=== PATIENT | male | born 1960 | race Caucasian/White ===

== ENCOUNTER 2020-03-22 11:59 | Day surgery (SDC) | payer OTHER ==
--- NOTE | 2020-03-22 07:17 | HP ---
History & Physical Update - Physical Physical: No Change - Assessment Assessment: No Change - Plan Plan: No Change
--- OUTSIDE RECORDS SUMMARY | 2020-03-22 12:12 | XMS ---
:1960 Author Organization [facility] Support Name Relationship Address Phone EFA Unavailable [address] [place] [address] [address] [place] [address] Re-disclosure Warning The records that you are about to access may contain information from federally- assisted alcohol or drug abuse programs. If such information is present, then the following federally mandated warning applies: This information has been disclosed to you from records protected by federal confidentiality rules (42 CFR part 2). The federal rules prohibit you from making any further disclosure of this information unless further disclosure is expressly permitted by the written consent of the person to whom it pertains or as otherwise permitted by 42 CFR part 2. A general authorization for the release of medical or other information is NOT sufficient for this purpose. The Federal rules restrict any use of the information to criminally investigate or prosecute any alcohol or drug abuse patient.The records that you are about to access may contain highly sensitive health information, the redisclosure of which is protected by Article 27-F of the [facility] Public Health law. If you continue you may haveaccess to information: Regarding HIV / AIDS; Provided by facilities licensed or operated by the [facility] Office of Mental Health; or Provided by the [facility] Office for People With Developmental Disabilities. If such information is present, then the following [facility] mandated warning applies: This information has been disclosed to you from confidential records which are protected by state law. State law prohibits you from making any further disclosure of this information without the specific written consent of the person to whom it pertains, or as otherwise permitted by law. Any unauthorized further disclosure in violation of state law may result in a fine or assisted sentence or both. A general authorization for the release of medical or other information is NOT sufficient authorization for further disclosure. Encounters Encounter Providers Location Date Indications Data Source(s ) Outpatient 04/19/2019 04:46:00 [facility] EN ([facility]) Insurance Providers Payer name Policy type Policy ID Covered Covered constitution party's Policy P bailey / Coverage constitution party ID relationship to [place] ormation type [place] [id number] 400 [employer] [place] [id number] [place] [id number] 400 HEALTH PLANS [facility] [id number] Health Plan [place] Problems, Conditions, and Diagnoses Code Display Name Description Problem Type Effective Data Sour ce(s) Dates T88.8xxA Other specified Complication med Diagnosis 04/19/2019 NEX TGEN complications of care NEC/NOS 04:46:00 PM ([facility]) classified, initial encounter Results ID Date Data Source [id number] 03/18/2020 10:01:00 AM EDT [facility] Name Value Range Interpretation Description Data Sup porting Code Source(s) Document(s ) SARS [facility] coronavirus 2 RNA This lab was ordered by [facility] and reported by [facility]. ID Date Data Source [id number] 02/20/2020 12:00:00 AM EDT [facility] Name Value Range Interpretation Description Data Sup porting Code Source(s) Document(s ) Nasopharyngeal [facility] Swab SARS-CoV-2 / COVID-19 This lab was ordered by [facility] and reported by [facility] [employer]. ID Date Data Source [id number] 11/24/2019 10:01:00 AM EDT [facility] Name Value Range Interpretation Description Data Sup porting Code Source(s) Document(s ) SARS [facility] CORONAVIRUS 2 RNA This lab was ordered by [employer] and reported by [facility]. ID Date Data Source [id number] 09/19/2019 12:00:00 AM EDT [facility] Name Value Range Interpretation Code Description Data Evelina rce(s) Supporting Document(s ) 2019-nCoV [facility] RNA XXX RICH+probe- Imp This lab was ordered by [id number] and reported by [employer] Procedure
[2020-03-22 12:36] VITALS: BMI 25.1
[2020-03-22] MEDS ORDERED: BUPIVACAINE HCL/PF 0.25% (2.5MG/ML) 10 ML VIAL ONE ×2 (14:28→15:59)
--- NOTE | 2020-03-22 15:06 | OPR ---
DATE OF OPERATION: 03/22/2020 TITLE OF OPERATION: Left partial medial meniscectomy, chondroplasty medial femoral condyle, patellofemoral joint, loose body removal, and synovectomy (limited). PREOPERATIVE DIAGNOSIS: Left Medial meniscus tear, chondromalacia medial compartment and patellofemoral joint, loose body, synovitis. POSTOPERATIVE DIAGNOSIS: Left Medial meniscus tear, chondromalacia medial compartment and patellofemoral joint, loose body, synovitis. SURGEON: Joe Ruvalcaba DO DELI WORKER: NAVID ANESTHESIA: General anesthesia SPECIMEN: Meniscus shavings COMPLICATIONS: none EBL: minimal INDICATIONS FOR SURGERY: Mr. Willis is a 60 year old male who presented in the preoperative setting with a chief complaint of left knee pain. Based on their mechanical symptoms, pre-injury level of activity, and after failure of conservative management, including physical therapy, activity modification and home exercise program, surgical treatment was discussed. The risks and benefits of surgery and anesthesia were discussed in detail including but not limited to pain, bleeding, blood clot, infection, scarring, damage to vessels and nerves, failure to obtain the desired result, failure to heal, failure to return to sport or work. Understanding the risks and benefits, Mr. Willis opted to proceed with surgical management. SURGEON'S NARRATIVE: After informed consent was obtained the patient was brought the operating room prepped draped in usual fashion sterile technique. Timeout was called. Site verification was performed and perioperative antibodies were administered. A standard anterolateral portal was made and the 4 mm 30 degree arthroscope was inserted into the knee joint without difficulty. This revealed significant patellofemoral grade II and III chondromalacia over approximately 30% of his joint, and demonstrated synovitic fronts over the inferior and medial portions of the patella. Turning my attention the medial compartment, the patient had a large complex tear of the body and posterior horn of the medial meniscus that reached the articular surface. There was mild associated chondromalacia grade II of the medial femoral condyle and tibial plateau constituting approximately 20% of the joint. I performed a partial medial meniscectomy removing the torn tissue with arthroscopic shaver and biter. I estimate that I removed approximately 40 percent of the meniscus. The remaining meniscus was intact after the resection from root to root. I was also able to remove a loose body that was in the medial compartment. The ACL was examined and was intact. Turning my attention the lateral compartment the patient, the lateral meniscus was probed, and there was no tear of the lateral meniscus. There was also no significant associated chondromalacia of the lateral compartment. The meniscus was intact from root to root. I then went into the patellofemoral compartment to complete a limited synovectomy, and of the patellofemoral joint. This completed the procedure. I closed incisions with 3-0 nylon. I injected 10cc's total .25% marcaine into the two portal sites. A sterile dressing and xeroform and an ADILSON bandage was placed. The patient tolerated procedure well and arrived recovery in stable condition. Patient will follow up with me in the office within 10-14 days for suture removal. He will start ASA 325 QD starting tomorrow for 30 days. He will be WBAT with crutches, and start Physical therapy within 7 days. Joe Ruvalcaba DO
[2020-03-22] MEDS ORDERED: MIDAZOLAM HCL 2 MG/2 ML SINGLE DOSE VIAL ONE (15:13)
[2020-03-22] MEDS ORDERED: ceFAZolin SODIUM 1 GM VIAL IVPB ONE (15:25)
[2020-03-22] MEDS ORDERED: BUPIVACAINE HCL/PF 0.5% (5 MG/ML) 30 ML VIAL IJ ONE (15:25)
[2020-03-22] MEDS ORDERED: ePHEDrine SULFATE 50 MG/1 ML AMPULE ONE (15:31)
[2020-03-22] MEDS ORDERED: oxyCODONE HCL 5 MG TABLET PO PRN ×2 (16:00→16:16)
[2020-03-22] MEDS ORDERED: LACTATED RINGERS SOLUTION 1,000 ML IV SCH (16:00)
[2020-03-22] MEDS ORDERED: ONDANSETRON 4 MG/2 ML VIAL IVPUSH PRN (16:00)
[2020-03-22] MEDS ORDERED: PROMETHAZINE HCL 25 MG/1 ML VIAL IVPUSH PRN (16:00)
[2020-03-22] MEDS ORDERED: ACETAMINOPHEN 325 MG TABLET (FP) PO PRN (16:16)
[2020-03-22] MEDS ORDERED: oxyCODONE HCL 5 MG TABLET ONE (17:17)
[2020-03-22 18:20] VITALS: TEMP 97.6
[2020-03-22 18:24] VITALS: BP 133/81; PULSE 82
--- NOTE | 2020-03-27 16:05 | PATH ---
Surgical Pathology Report Patient Name: KIRSTEN MOSLEY Med. Rec. #: [id number] /Age/Gender: 1960 (Age: 60) / M Account: [id number] Location: [facility] Taken: 03/22/2020 Received: 03/22/2020 Reported: 03/27/2020 Physicians: Joe Ruvalcaba MD Specimen(s) Received SHAVINGS LEFT KNEE Clinical History Left knee partial meniscectomy Final Diagnosis LEFT KNEE SHAVINGS: FRAGMENTS OF SYNOVIAL TISSUE WITH FOCAL MILD CHRONIC INFLAMMATION, FIBROSIS, AND REACTIVE CHANGE. Electronically Signed Susy Maldonado M.D. Gross Description Received in formalin, labeled "left knee shavings," is a 4.0 x 3.3 x 0.3 cm. aggregate of shelton-yellow soft tissue fragments. A patient account representative portion is submitted in one cassette. /03/25/2020 saudi03/25/2020
== END 2020-03-22 17:40 | disposition home or self-care (01) ==
LOC: FASU 11:59
PROVIDERS: ATTEND Orthopaedic Surgery Sports Medicine
PROC: 0SCD4ZZ Extirpation of Matter from Left Knee Joint, Percutaneous Endoscopic Approach (ICD-10-PCS; 2020-03-22)
PROC: 0SBD4ZZ Excision of Left Knee Joint, Percutaneous Endoscopic Approach (ICD-10-PCS; principal; 2020-03-22 13:15)
DX: S83.242A Other tear of medial meniscus, current injury, left knee, initial encounter (principal); M22.42 Chondromalacia patellae, left knee; M23.42 Loose body in knee, left knee; M65.9 Synovitis and tenosynovitis, unspecified; X58.XXXA Exposure to other specified factors, initial encounter; Y93.9 Activity, unspecified; Y92.9 Unspecified place or not applicable
CPT/HCPCS: 29881; G0289; 88304-TC; 94760